=== PATIENT | female | born 1965 | race African-American/Black ===

== ENCOUNTER 2016-12-06 17:19 | Emergency (ER) | payer MEDICAID ==
[~2016-12-06] VITALS: Ht 160 cm; Wt 65.8 kg
[~2016-12-06 17:19] MED LIST: ATENOLOL50 MG ORAL; AZITHROMYCIN250 MG ORAL; BACTRIM DS TAB1 EAC1 ORAL; CLINDAMYCIN HC300 MG ORAL; CYCLOBENZAPRINE10 MG ORAL; DEBROX15 M1 LEFT EAR; HYDROCHLOROTHIA25 MG ORAL; IBUPROFEN600 MG ORAL; KEFLEX500 MG ORAL; LISINOPRIL10 MG ORAL; LISINOPRIL5 MG ORAL; PROMETHAZINE-D118 ML ORAL; TENORMIN50 MG ORAL
[2016-12-06 17:33] VITALS: BP 156/103
[2016-12-06] MEDS ORDERED: Lisinopril 10mg tab ORAL ONE (17:45)
[2016-12-06 18:10] VITALS: BP 170/124
[2016-12-06 18:20] VITALS: BP 168/113
[2016-12-06] MEDS ORDERED: LISINOPRIL10 MG ORAL (18:23)
[2016-12-06] MEDS ORDERED: ATENOLOL50 MG ORAL (18:23)
[2016-12-06] MEDS ORDERED: HYDROCHLOROTHIA25 MG ORAL (18:23)
[2016-12-06 18:30] VITALS: BP 168/113
--- NOTE | 2016-12-06 18:35 | Emergency Room Report ---
History of Present Illness General Chief Complaint: Medication Refill Source: Medical Record Present Illness HPI The patient is a 51-year-old female with a history of hypertension presenting for medication refill. Patient states that she has run out of all 3 of her hypertensive medications 2 days ago. The patient states that she has not been able to make an appointment with her primary care physician. The patient denies chest pain, shortness of breath, dizziness, blurred vision, flank pain, abdominal pain nausea, vomiting Allergies: Coded Allergies: NO KNOWN ALLERGIES (Unverified Allergy, Unknown, 08/31/15) Patient History Past Medical History: see triage record Pertinent Family History: none Last Menstrual Period: Hystecomy Now: No : 2 Para: 2 Reviewed Nursing Documentation: PMH: Agreed, PSxH: Agreed Nursing Documentation-PMH Past Medical History: No History, Except For Hx Hypertension: Yes Review of Systems All Other Systems: negative except mentioned in HPI Physical Exam Vital Signs Date Time Temp Pulse Resp B/P Pulse Ox O2 Delivery O2 Flow Rate FiO2 12/06/16 17:25 97.9 94 22 156/103 98 Room Air Sp02 EP Interpretation: reviewed, normal General Appearance: no apparent distress, alert, GCS 15, non-toxic Head: normocephalic, atraumatic Eyes: bilateral eye PERRL, bilateral eye normal inspection ENT: hearing grossly normal, normal pharynx, no angioedema, normal voice Neck: full range of motion, supple/symm/no masses Respiratory: chest non-tender, lungs clear, normal breath sounds, speaking full sentences Cardiovascular #1: regular rate, rhythm, no edema, no murmur Gastrointestinal: normal bowel sounds, non tender, soft, non-distended, no guarding, no rebound Rectal: deferred Genitourinary: normal inspection, no CVA tenderness Musculoskeletal: back normal, gait/station normal, normal range of motion, non- tender, calf tenderness Neurologic: alert, oriented x3, responsive, motor strength/tone normal, sensory intact, speech normal Psychiatric: judgement/insight normal, memory normal, mood/affect normal, no suicidal/homicidal ideation Skin: normal color, no rash, warm/dry, well hydrated Lymphatic: no adenopathy Medical Decision Making PA Attestation Dr. Milner is my supervising physician. Patient management was discussed with my supervising physician Diagnostic Impression: Primary Impression: Medication refill Additional Impression: Hypertension ER Course The patient is a 51-year-old female with a history of hypertension presenting for medication refill Differential diagnosis considered: Hypertension, hypotension, hypertensive urgency or emergency PE: The patient is hypertensive. No apparent distress. A&Ox3 PERRL. EOMI. Normal mentation. RRR. No MRG Lungs CTA bilat Abdomen: Normal appearance. Non distended. No ecchymosis. Normal BS. Non TTP. No McBurney point tenderness. No guarding. Skin is warm and dry, no rashes. The patient is given lisinopril in the emergency department and will be discharged home with all 3 medications refilled. The patient with followup with primary care physician for further care and refills of medication Last Vital Signs Date Time Temp Pulse Resp B/P Pulse Ox O2 Delivery O2 Flow Rate FiO2 12/06/16 18:20 97.9 75 22 168/113 98 Room Air Status: improved Disposition: HOME, SELF-CARE Condition: Improved Scripts Lisinopril* (LISINOPRIL*) 10 Mg Tablet 10 MG ORAL DAILY, #30 TAB Prov: QUITA MEYERS P.A. 12/06/16 Hydrochlorothiazide* (HYDROCHLOROTHIAZIDE*) 25 Mg Tablet 25 MG ORAL DAILY, #30 TAB Prov: TERYAMILAANQUITA P.A. 12/06/16 Atenolol* (TENORMIN*) 50 Mg Tablet 50 MG ORAL DAILY, #30 TAB Prov: TERYAMILAANQUITA P.A. 12/06/16 Referrals: LANEY BASHIR,REFERRING (PCP) Patient Instructions: Medicine Refill at the Emergency Department, Hypertension Additional Instructions: I discussed my findings with the patient. All questions and concerns have been answered. Treatment and medication compliance have been addressed. I advised the patient that they need to follow up with PMD in 3-5 days. Return to ED if symptoms worsen, new symptoms arise, or if needed for any reason. Patient verbalized understanding of discharge instructions. QUITA MEYERS Dec 06, 2016 18:35
== END 2016-12-06 18:31 | disposition home or self-care (01) ==
LOC: EMR 17:58
DX: Z76.0 Encounter for issue of repeat prescription (principal); I10 Essential (primary) hypertension
CPT/HCPCS: 99284

== ENCOUNTER 2017-01-22 15:57 | Emergency (ER) | payer MEDICAID ==
[~2017-01-22] VITALS: Ht 160 cm; Wt 63.5 kg
[2017-01-22 16:40] VITALS: BP 173/111
--- NOTE | 2017-01-22 16:52 | Emergency Room Report ---
History of Present Illness General Chief Complaint: Skin Rash/Abscess Source: Medical Record Present Illness HPI 31-year-old female presents to emergency department complaining of itchy rash on the posterior neck and right shoulder since yesterday. Patient reports multiple insect bites that are itching and mildly erythematous. Patient denies nausea vomiting fevers or chills. Patient denies discharge or staining around the lesions. She denies rash elsewhere on her body. She denies recent travel or ill contacts. She also is requesting refill of her blood pressure medications atenolol, hydrochlorothiazide, lisinopril. Patient states that she has been out of her medications and did not take any today . Denies CP, Palpitations, LOC, AMS, dizziness, Changes in Vision, Sensation, paresthesias, or a sudden severe headache. Allergies: Coded Allergies: NO KNOWN ALLERGIES (Unverified Allergy, Unknown, 08/31/15) Patient History Past Medical History: see triage record Past Surgical History: none Pertinent Family History: none Now: No Immunizations: UTD Reviewed Nursing Documentation: PMH: Agreed, PSxH: Agreed Nursing Documentation-PMH Hx Hypertension: Yes Review of Systems All Other Systems: negative except mentioned in HPI Physical Exam Vital Signs Date Time Temp Pulse Resp B/P Pulse Ox O2 Delivery O2 Flow Rate FiO2 01/22/17 16:29 98.4 88 16 173/111 97 Room Air Sp02 EP Interpretation: reviewed, abnormal - elevated BP 173/111 General Appearance: no apparent distress, alert, GCS 15, non-toxic Head: normocephalic, atraumatic Eyes: bilateral eye PERRL, bilateral eye normal inspection ENT: hearing grossly normal, normal pharynx, no angioedema, normal voice Neck: full range of motion, supple/symm/no masses Respiratory: chest non-tender, lungs clear, normal breath sounds, speaking full sentences Cardiovascular #1: regular rate, rhythm, no edema Rectal: deferred Genitourinary: normal inspection, no CVA tenderness Musculoskeletal: back normal, gait/station normal, normal range of motion, non- tender, no calf tenderness Neurologic: alert, oriented x3, responsive, motor strength/tone normal, sensory intact, speech normal Psychiatric: judgement/insight normal, memory normal, mood/affect normal, no suicidal/homicidal ideation Skin: normal color, warm/dry, well hydrated, rash - multiple insect bites with surrounding non-blanching erythema suspicious for mild cellulitis. Lymphatic: no adenopathy Medical Decision Making PA Attestation Dr. Garces is my supervising Physician whom patient management has been discussed with. Diagnostic Impression: Primary Impression: Rash and other nonspecific skin eruption Additional Impressions: Medication refill Hypertension Qualified Codes: I10 - Essential (primary) hypertension ER Course 31-year-old female presents to emergency department complaining of itchy rash on the posterior neck and right shoulder since yesterday. Patient reports multiple insect bites that are itching and mildly erythematous. Patient denies nausea vomiting fevers or chills. Patient denies discharge or staining around the lesions. She denies rash elsewhere on her body. She denies recent travel or ill contacts. She also is requesting refill of her blood pressure medications atenolol, hydrochlorothiazide, lisinopril. Patient states that she has been out of her medications and did not take any today Ddx considered but are not limited to cellulitis, scabies, shingles, varicella, dermatitis, urticaria, eczema, tinea, Medication refill, HTN urgency, elevated BP. Vital signs: pt. is afebrile, elevated BP at 173/111 , non-tachycardic, non- toxic NAD. H&PE are most consistent with multiple insect bites with surrounding non- blanching erythema suspicious for mild cellulitis. ORDERS: none required at this time, the diagnosis is clinical ED INTERVENTIONS: -HCTZ PO -Atenolol PO DISCHARGE: At this time pt. is stable for d/c to home. Will provide printed patient care instructions, and any necessary prescriptions. Care plan and follow up instructions have been discussed with the patient prior to discharge. Last Vital Signs Date Time Temp Pulse Resp B/P Pulse Ox O2 Delivery O2 Flow Rate FiO2 01/22/17 16:40 16 173/111 97 Room Air 01/22/17 16:29 98.4 88 Disposition: HOME, SELF-CARE Condition: Stable Patient Instructions: Medicine Refill at the Emergency Department, Rash Additional Instructions: Take medications as directed. Follow up with PCP in 3-5 days Return sooner to ED if new symptoms occur, or current symptoms become worse. - Please note that this Emergency Department Report was dictated using [employer] software, occasionally this can lead to erroneous entry secondary to interpretation by the dictation equipment. Sayda Ibarra Jan 22, 2017 16:52
[2017-01-22] MEDS ORDERED: HYDROCHLOROTHIA25 MG ORAL (16:54)
[2017-01-22] MEDS ORDERED: CEPHALEXIN500 MG ORAL (16:54)
[2017-01-22] MEDS ORDERED: BENADRYL25 MG ORAL (16:54)
[2017-01-22] MEDS ORDERED: HM DOUBLE ANT28.4 G1 TP (16:54)
[2017-01-22] MEDS ORDERED: ATENOLOL50 MG ORAL (16:54)
[2017-01-22] MEDS ORDERED: LISINOPRIL5 MG ORAL (16:54)
[2017-01-22 17:00] VITALS: BP 173/111
== END 2017-01-22 17:30 | disposition home or self-care (01) ==
LOC: EMR 17:13
DX: R21 Rash and other nonspecific skin eruption (principal); Z76.0 Encounter for issue of repeat prescription; I10 Essential (primary) hypertension
CPT/HCPCS: 99284

== ENCOUNTER 2017-03-20 19:12 | Emergency (ER) | payer MEDICAID ==
[~2017-03-20] VITALS: Ht 160 cm; Wt 63.5 kg
[~2017-03-20 19:12] MED LIST changes: +BENADRYL25 MG ORAL; +CEPHALEXIN500 MG ORAL; +HM DOUBLE ANT28.4 G1 TP
[2017-03-20] MEDS ORDERED: ATENOLOL50 MG ORAL (19:32)
[2017-03-20] MEDS ORDERED: LISINOPRIL10 MG ORAL (19:32)
[2017-03-20] MEDS ORDERED: HYDROCHLOROTHIA25 MG ORAL (19:32)
[2017-03-20 19:42] VITALS: BP 145/107
[2017-03-20] MEDS ORDERED: TdaP Vaccine 0.5ml Syr IM ONE (19:45)
--- NOTE | 2017-03-20 19:52 | Emergency Room Report ---
History of Present Illness General Chief Complaint: Hypertension Source: Patient Present Illness HPI Patient reports that she feels her blood pressure has been high She reports that she usually gets a head pressure And feels the headache coming on with blood pressure Denies any neck pain or photophobia denies any chest pain as any back or flank pain Denies any dysuria frequency Denies any fall or trauma Patient has not taken her blood pressure today Also reports that one of her blood pressure vacation was not refilled last time she was in the ER has not taken her lisinopril over the last month Allergies: Coded Allergies: NO KNOWN ALLERGIES (Unverified Allergy, Unknown, 08/31/15) Patient History Past Medical History: see triage record Pertinent Family History: none Last Menstrual Period: SURGICAL MENOPAUSE Reviewed Nursing Documentation: PMH: Agreed, PSxH: Agreed Nursing Documentation-PMH Hx Hypertension: Yes Review of Systems All Other Systems: negative except mentioned in HPI Physical Exam Vital Signs Date Time Temp Pulse Resp B/P Pulse Ox O2 Delivery O2 Flow Rate FiO2 03/20/17 19:32 97.9 67 16 145/107 98 Room Air Sp02 EP Interpretation: reviewed, normal General Appearance: well appearing, no apparent distress Head: normocephalic, atraumatic Eyes: bilateral eye EOMI, bilateral eye PERRL ENT: hearing grossly normal, normal pharynx, TMs + canals normal, uvula midline Neck: full range of motion, supple, no meningismus, no bony tend Respiratory: lungs clear, normal breath sounds, no rhonchi, no respiratory distress, no retraction, no accessory muscle use Cardiovascular #1: normal peripheral pulses, regular rate, rhythm, no edema, no gallop, no JVD, no murmur Gastrointestinal: normal bowel sounds, non tender, soft, no mass, no organomegaly, non-distended, no guarding, no hernia, no pulsatile mass, no rebound Genitourinary: no CVA tenderness Musculoskeletal: normal inspection Neurologic: oriented x3, responsive, staff submarine warfare officer III-XII nml as tested, motor strength/ tone normal, sensory intact Psychiatric: mood/affect normal Skin: warm/dry, palpation normal, other - Small abrasion lateral part of the right leg Lymphatic: normal inspection, no adenopathy Medical Decision Making Diagnostic Impression: Primary Impression: Hypertension Additional Impression: Medication refill ER Course Patient also requesting tetanus shot reports that she had a scratch on her right leg and has not received a tetanus shot as of yet At this time essentially asymptomatic, Patient's blood pressure at triage is 145 systolic At this time patient was prescribed and refilled her medications I did have a discussion regarding the need for close outpatient followup Refills to the ER are not the appropriate avenue patient voices understanding Last Vital Signs Date Time Temp Pulse Resp B/P Pulse Ox O2 Delivery O2 Flow Rate FiO2 03/20/17 19:32 97.9 67 16 145/107 98 Room Air Status: improved Disposition: HOME, SELF-CARE Condition: Improved Scripts Atenolol* (TENORMIN*) 50 Mg Tablet 50 MG ORAL DAILY, #30 TAB Prov: DIANA LEAL D.O. 03/20/17 Hydrochlorothiazide* (HYDROCHLOROTHIAZIDE*) 25 Mg Tablet 25 MG ORAL DAILY, #30 TAB Prov: DIANA LEAL D.O. 03/20/17 Lisinopril* (LISINOPRIL*) 10 Mg Tablet 10 MG ORAL DAILY, #30 TAB Prov: DIANA LEAL D.O. 03/20/17 Patient Instructions: Hypertension, [id number] Additional Instructions: Patient is provided with the discharge instructions notified to follow up with primary doctor in the next 2-3 days otherwise return to the er with any worsening symptoms. Please note that this report is being documented using [employer] technology. This can lead to erroneous entry secondary to incorrect interpretation by the dictating instrument. DIANA LEAL D.O. March 20, 2017 19:52
[2017-03-20 20:01] VITALS: BP 145/107
== END 2017-03-20 20:01 | disposition home or self-care (01) ==
LOC: EMR 19:30
DX: I10 Essential (primary) hypertension (principal); Z76.0 Encounter for issue of repeat prescription; Z23 Encounter for immunization; S70.311A Abrasion, right thigh, initial encounter; X58.XXXA Exposure to other specified factors, initial encounter; Y92.89 Other specified places as the place of occurrence of the external cause
CPT/HCPCS: 90471; 90715; 96372; 99284

== ENCOUNTER 2017-05-19 18:56 | Emergency (ER) | payer MEDICAID ==
[~2017-05-19] VITALS: Ht 160 cm; Wt 63.5 kg
[2017-05-19 19:13] VITALS: BP 144/98
[2017-05-19] MEDS ORDERED: ATENOLOL50 MG ORAL (19:31)
[2017-05-19] MEDS ORDERED: LISINOPRIL10 MG ORAL (19:31)
[2017-05-19] MEDS ORDERED: HYDROCHLOROTHIA25 MG ORAL (19:31)
[2017-05-19] MEDS ORDERED: IBUPROFEN600 MG ORAL (19:32)
[2017-05-19] MEDS ORDERED: TESSALON PERLE100 MG ORAL (19:32)
[2017-05-19 19:37] VITALS: BP 150/79
[2017-05-19 19:38] VITALS: BP 144/98
--- NOTE | 2017-05-19 22:17 | Emergency Room Report ---
History of Present Illness General Chief Complaint: Upper Respiratory Illness Source: Patient Present Illness HPI The patient is a 51-year-old female with a history of hypertension presenting for 2 weeks of hoarse voice and cough. She also would like a medication refill for antihypertensive medications which ran out today. The patient describes pain as an 8/10 dull ache to the back of the throat and does not radiate. Symptoms worsen with talking. She denies fever or chills. She denies any other symptoms including nausea, vomiting, headache, dizziness, chest pain, shortness of breath Allergies: Coded Allergies: NO KNOWN ALLERGIES (Unverified Allergy, Unknown, 08/31/15) Patient History Past Medical History: see triage record Pertinent Family History: none Now: No Reviewed Nursing Documentation: PMH: Agreed, PSxH: Agreed Nursing Documentation-PMH Hx Hypertension: Yes Review of Systems All Other Systems: negative except mentioned in HPI Physical Exam Vital Signs Date Time Temp Pulse Resp B/P Pulse Ox O2 Delivery O2 Flow Rate FiO2 05/19/17 19:00 97.9 80 15 144/112 96 Room Air Sp02 EP Interpretation: reviewed, normal General Appearance: no apparent distress, alert, GCS 15, non-toxic Head: normocephalic, atraumatic Eyes: bilateral eye PERRL, bilateral eye normal inspection ENT: hearing grossly normal, normal pharynx, no angioedema, normal voice, uvula midline, nasal congestion Neck: full range of motion, supple/symm/no masses Respiratory: chest non-tender, lungs clear, normal breath sounds, speaking full sentences Genitourinary: normal inspection, no CVA tenderness Musculoskeletal: back normal, gait/station normal, normal range of motion, non- tender, calf tenderness Neurologic: alert, oriented x3, responsive, motor strength/tone normal, sensory intact, speech normal Psychiatric: judgement/insight normal, memory normal, mood/affect normal, no suicidal/homicidal ideation Skin: normal color, no rash, warm/dry, well hydrated Medical Decision Making PA Attestation Dr. Milner is my supervising physician. Patient management was discussed with my supervising physician Diagnostic Impression: Primary Impression: Laryngitis Additional Impression: Hypertension Qualified Codes: I10 - Essential (primary) hypertension ER Course The patient is a 51-year-old female presenting for laryngitis and medication refill Differential diagnosis include but not limited to pharyngitis, laryngitis, sinusitis, AOM, bronchitis, PNA PE: No apparent distress. No TTP over maxillary or frontal sinuses. Lungs CTA bilat. No wheezing. No accessory muscle use. Heart: RRR, no abnormal heart sounds Ears: external auditory canal clear. Non erythematous. Bilat TM intact. Cone of light present bilat. No bulging of TM. No serous fluid seen. + nasal D/C no anterior cervical lymphad No tonsillar exudate. Uvula midline.Oropharynx non erythematous The patient is discharged home with a prescription for cough medication and Motrin. She is also given refills on antihypertensive medications. She is informed she needs to followup with primary doctor for long-term care. ER precautions given Last Vital Signs Date Time Temp Pulse Resp B/P Pulse Ox O2 Delivery O2 Flow Rate FiO2 05/19/17 19:38 97.9 75 15 144/98 96 Room Air Status: improved Disposition: HOME, SELF-CARE Condition: Improved Scripts Ibuprofen* (MOTRIN*) 600 Mg Tablet 600 MG ORAL Q8H Y for For Pain, #30 TAB 0 Refills Prov: TERZIAN,QUITA P.A. 05/19/17 Benzonatate* (TESSALON PERLE*) 100 Mg Capsule 100 MG ORAL THREE TIMES A DAY, #30 PERLE Prov: TERZIAN,QUITA P.A. 05/19/17 Lisinopril* (LISINOPRIL*) 10 Mg Tablet 10 MG ORAL DAILY, #30 TAB Prov: TERZIAN,QUITA P.A. 05/19/17 Hydrochlorothiazide* (HYDROCHLOROTHIAZIDE*) 25 Mg Tablet 25 MG ORAL DAILY, #30 TAB Prov: TERZIAN,QUITA P.A. 05/19/17 Atenolol* (TENORMIN*) 50 Mg Tablet 50 MG ORAL DAILY, #30 TAB Prov: TERZIAN,QUITA P.A. 05/19/17 Patient Instructions: Laryngitis, Hypertension Additional Instructions: I discussed my findings with the patient. All questions and concerns have been answered. Treatment and medication compliance have been addressed. I advised the patient that they need to follow up with PMD in 3-5 days. Return to ED if pain remains or worsens, cough worsens or remains, you notice blood in your sputum, you notice wheezing, you experience a fever, or if needed for any reason. Patient verbalized understanding of discharge instructions. QUITA MEYERS May 19, 2017 22:16
== END 2017-05-19 19:40 | disposition home or self-care (01) ==
LOC: EMR 19:25
DX: J04.0 Acute laryngitis (principal); I10 Essential (primary) hypertension; Z76.0 Encounter for issue of repeat prescription
CPT/HCPCS: 99284

== ENCOUNTER 2017-08-21 14:54 | Emergency (ER) | payer MEDICAID ==
[~2017-08-21] VITALS: Ht 160 cm; Wt 65.8 kg
[~2017-08-21 14:54] MED LIST changes: +TESSALON PERLE100 MG ORAL
[2017-08-21 15:05] VITALS: BP 131/87
[2017-08-21] MEDS ORDERED: HYDROCHLOROTHIA25 MG ORAL (15:27)
[2017-08-21] MEDS ORDERED: IBUPROFEN600 MG ORAL (15:27)
[2017-08-21] MEDS ORDERED: ATENOLOL50 MG ORAL (15:27)
[2017-08-21] MEDS ORDERED: LISINOPRIL10 MG ORAL (15:27)
--- NOTE | 2017-08-21 22:14 | Emergency Room Report ---
History of Present Illness General Chief Complaint: Headache Source: Patient Present Illness HPI Patient is a 52-year-old female presenting for headache and medication refill. She states that she has a history of hypertension and ran out of medications today. This is her primary reason for the visit. She states that she developed a headache today and took Motrin which helped significantly. Pain is now 5/10 dull ache. She denies any provoking or relieving factors. She denies any other symptoms including nausea, vomiting, fever, chills, dizziness, blurred vision, headache Allergies: Coded Allergies: NO KNOWN ALLERGIES (Unverified Allergy, Unknown, 08/31/15) Patient History Past Medical History: see triage record Pertinent Family History: none Reviewed Nursing Documentation: PMH: Agreed, PSxH: Agreed Nursing Documentation-PMH Past Medical History: No History, Except For Hx Hypertension: Yes Review of Systems All Other Systems: negative except mentioned in HPI Physical Exam Vital Signs Date Time Temp Pulse Resp B/P (MAP) Pulse Ox O2 Delivery O2 Flow Rate FiO2 08/21/17 15:05 98.1 79 14 131/87 100 Room Air Sp02 EP Interpretation: reviewed, normal General Appearance: no apparent distress, alert, GCS 15, non-toxic Head: normocephalic, atraumatic Eyes: bilateral eye normal inspection, bilateral eye PERRL ENT: hearing grossly normal, normal pharynx, no angioedema, normal voice Neck: full range of motion, supple/symm/no masses Respiratory: chest non-tender, lungs clear, normal breath sounds, speaking full sentences Cardiovascular #1: regular rate, rhythm, no edema Musculoskeletal: back normal, gait/station normal, normal range of motion, non- tender Neurologic: alert, oriented x3, responsive, motor strength/tone normal, sensory intact, speech normal Psychiatric: judgement/insight normal, memory normal, mood/affect normal, no suicidal/homicidal ideation Skin: normal color, no rash, warm/dry, well hydrated Lymphatic: no adenopathy Medical Decision Making PA Attestation Dr. Gaines is my supervising physician. Patient management was discussed with my supervising physician Diagnostic Impression: Primary Impression: Headache Qualified Codes: R51 - Headache Additional Impression: Hypertension Qualified Codes: I10 - Essential (primary) hypertension ER Course Patient is a 52-year-old female presenting for headache and medication refill. Differential diagnoses include but not limited to Migraine, tension headache, AVM, HTN, among others PE: vitals WNL. NAD HEENT unremarkable. Neck is soft and supple. FulL AROM The patient is given Tylenol for pain and feels significantly better. She is given refill of her medications and needs to followup with her primary doctor ER precautions given Last Vital Signs Date Time Temp Pulse Resp B/P (MAP) Pulse Ox O2 Delivery O2 Flow Rate FiO2 08/21/17 15:34 98.1 79 14 131/87 100 Room Air Status: improved Disposition: HOME, SELF-CARE Condition: Improved Scripts Ibuprofen* (MOTRIN*) 600 Mg Tablet 600 MG ORAL Q8H Y for For Pain, #30 TAB 0 Refills Prov: QUITA MEYERS.A. 08/21/17 Lisinopril* (LISINOPRIL*) 10 Mg Tablet 10 MG ORAL DAILY, #30 TAB Prov: QUITA MEEYRS P.A. 08/21/17 Hydrochlorothiazide* (HYDROCHLOROTHIAZIDE*) 25 Mg Tablet 25 MG ORAL DAILY, #30 TAB Prov: TERYAMILAANQUITA P.A. 08/21/17 Atenolol* (TENORMIN*) 50 Mg Tablet 50 MG ORAL DAILY, #30 TAB Prov: TERYAMILAANQUITA P.A. 08/21/17 Referrals: LANEY BASHIR,REFERRING (PCP) Patient Instructions: General Headache Without Cause, Hypertension Additional Instructions: I discussed my findings with the patient. All questions and concerns have been answered. Treatment and medication compliance have been addressed. I advised the patient that they need to follow up with PMD in 3-5 days. Return to ED if symptoms worsen, new symptoms arise, or if needed for any reason. Patient verbalized understanding of discharge instructions. QUITA MEYERS Aug 21, 2017 22:14
== END 2017-08-21 15:34 | disposition home or self-care (01) ==
LOC: EMR 15:30
DX: R51 Headache (principal); I10 Essential (primary) hypertension
CPT/HCPCS: 99284

== ENCOUNTER 2017-09-22 14:47 | Emergency (ER) | payer MEDICAID ==
[~2017-09-22] VITALS: Ht 160 cm; Wt 63.5 kg
[2017-09-22] MEDS ORDERED: Excedrin Migraine tab ORAL ONE (15:45)
[2017-09-22 16:18] LABS: APPEARANCE,URINE CLEAR; BILIRUBIN, URINE NEGATIVE (NEGATIVE); COLOR,URINE PALE YELLOW; GLUCOSE, URINE (UA) NEGATIVE (NEGATIVE); KETONES,URINE NEGATIVE (NEGATIVE); LEUKOCYTE ESTERASE ,URINE 3+ (NEGATIVE); NITRITE,URINE NEGATIVE (NEGATIVE); PH,URINE 5 (4.5-8.0); PROTEIN,URINE NEGATIVE (NEGATIVE); UROBILINOGEN,URINE NORMAL MG/DL (0.0-1.0)
--- NOTE | 2017-09-22 16:50 | Emergency Room Report ---
History of Present Illness General Chief Complaint: Headache Source: Patient Present Illness HPI 52 YO Female presents to the emergency department complaining of 8/10 in severity slow onset headache intermittent times one week with some nausea denies vomiting. Patient states that she has had headaches in the past which are similar in character. Patient denies visual changes, photophobia, floaters , flashing lights. Patient denies neck pain or stiffness she denies sudden onset denies fevers or chills. Patient has a history of high blood pressure and she reports that she has always been taking her medication the past week because she needed a refill. Patient states that she does have her medication now. Reports urinary frequency denies dysuria, hematuria. Patient reports some thickened white vaginal discharge and itching in the groin area she believes she may have a yeast infection. Denies recent antibiotic use. Or recent unprotected intercourse. Denies CP, Palpitations, LOC, AMS, dizziness, Changes in Vision, Sensation, paresthesias, or a sudden severe headache. Allergies: Coded Allergies: NO KNOWN ALLERGIES (Unverified Allergy, Unknown, 08/31/15) Patient History Past Medical History: see triage record Past Surgical History: none Pertinent Family History: none Last Menstrual Period: "Partial hyst" Now: No Reviewed Nursing Documentation: PMH: Agreed, PSxH: Agreed Nursing Documentation-PMH Hx Hypertension: Yes Review of Systems All Other Systems: negative except mentioned in HPI Physical Exam Vital Signs Date Time Temp Pulse Resp B/P (MAP) Pulse Ox O2 Delivery O2 Flow Rate FiO2 09/22/17 15:02 98.2 89 16 155/104 100 Room Air Sp02 EP Interpretation: reviewed, normal General Appearance: no apparent distress, alert, GCS 15, non-toxic Head: normocephalic, atraumatic Eyes: bilateral eye normal inspection, bilateral eye PERRL ENT: hearing grossly normal, normal pharynx, no angioedema, normal voice, TMs + canals normal Neck: full range of motion, no meningismus, no bony tend, supple/symm/no masses Respiratory: lungs clear, normal breath sounds, speaking full sentences Cardiovascular #1: regular rate, rhythm, normal capillary refill Gastrointestinal: non tender, soft Rectal: deferred Genitourinary: normal inspection, no CVA tenderness Musculoskeletal: back normal, gait/station normal, normal range of motion, non- tender Neurologic: alert, oriented x3, responsive, motor strength/tone normal, sensory intact, speech normal, no pronator, other - equal communications engineering technician strength. Skin: normal color, no rash, warm/dry, well hydrated Lymphatic: no adenopathy Medical Decision Making PA Attestation Dr. castro is my supervising Physician whom patient management has been discussed with. Diagnostic Impression: Primary Impression: Headache Qualified Codes: R51 - Headache ER Course 52 YO Female presents to the emergency department complaining of 8/10 in severity slow onset headache intermittent times one week with some nausea denies vomiting. Patient states that she has had headaches in the past which are similar in character. Patient denies visual changes, photophobia, floaters , flashing lights. Patient denies neck pain or stiffness she denies sudden onset denies fevers or chills. Patient has a history of high blood pressure and she reports that she has always been taking her medication the past week because she needed a refill. Patient states that she does have her medication now. Reports urinary frequency denies dysuria, hematuria. Patient reports some thickened white vaginal discharge and itching in the groin area she believes she may have a yeast infection. Denies recent antibiotic use. Or recent unprotected intercourse. Denies CP, Palpitations, LOC, AMS, dizziness, Changes in Vision, Sensation, paresthesias, or a sudden severe headache. Ddx considered but are not limited to migraine, SAH, Psedudo motor Cerebri, Mass lesion, Cluster SALAZAR, Tension SALAZAR, Post lumbar puncture SALAZAR, UTI, yeast infection. Vital signs: are WNL, pt. is afebrile H&PE are most consistent with SALAZAR, no neurological clinical findings, no evidence to suspect acute infection. ORDERS: - UA: Unremarkable ED INTERVENTIONS: - Reglan PO -Excedrin PO DISCHARGE: At this time pt. is stable for d/c to home. Will provide printed patient care instructions, and any necessary prescriptions. Care plan and follow up instructions have been discussed with the patient prior to discharge. Labs Test 09/22/17 15:39 Urine Color Pale yellow Urine Appearance Clear Urine pH 5 (4.5-8.0) Urine Specific [place] 1.015 (1.005-1.035) Urine Protein Negative (NEGATIVE) Urine Glucose (UA) Negative (NEGATIVE) Urine Ketones Negative (NEGATIVE) Urine Occult Blood Negative (NEGATIVE) Urine Nitrite Negative (NEGATIVE) Urine Bilirubin Negative (NEGATIVE) Urine Urobilinogen Normal MG/DL (0.0-1.0) Urine Leukocyte Esterase 3+ (NEGATIVE) Urine RBC 0-2 /HPF (0 - 2) Urine WBC 2-4 /HPF (0 - 2) Urine Squamous Epithelial Cells Few /LPF (NONE/OCC) Urine Bacteria Few /HPF (NONE) Last Vital Signs Date Time Temp Pulse Resp B/P (MAP) Pulse Ox O2 Delivery O2 Flow Rate FiO2 09/22/17 15:02 98.2 89 16 155/104 100 Room Air Disposition: HOME, SELF-CARE Condition: Stable Scripts Fluconazole (FLUCONAZOLE) 100 Mg Tablet 100 MG ORAL DAILY for 2 Days, #2 TAB 0 Refills Prov: Sayda Ibarra 09/22/17 Aspirin/Acetaminophen/Caffeine (EXCEDRIN MIGRAINE GELTAB) 1 Each Tablet 1 EACH PO Q6HR, #20 TAB Prov: Sayda Ibarra 09/22/17 Metoclopramide Hcl* (REGLAN*) 10 Mg Tablet 10 MG ORAL THREE TIMES A DAY Y for For Headache, #7 TAB Prov: Syada Ibarra 09/22/17 Referrals: [facility],REFERRING (PCP) Departure Forms: Return to Work Return to Work Date: Sep 24, 2017 Work Restrictions: None Return to Full Activity: Sep 24, 2017 Patient Instructions: General Headache Without Cause Additional Instructions: Take medications as directed. Follow up with a Primary Care Provider in 3-5 days may require neurology evaluation, even if your symptoms have resolved. --Please review list of primary care clinics, if you do not already have a primary care provider Return sooner to ED if new symptoms occur, or current symptoms become worse. - Please note that this Emergency Department Report was dictated using [employer] stewardess technology software, occasionally this can lead to erroneous entry secondary to interpretation by the dictation equipment. Sayda Ibarra Sep 22, 2017 16:50
[2017-09-22] MEDS ORDERED: EXCEDRIN MIGRA1 EACH PO (16:53)
[2017-09-22] MEDS ORDERED: REGLAN10 MG ORAL (16:53)
[2017-09-22 17:02] VITALS: BP 150/99
[2017-09-22] MEDS ORDERED: FLUCONAZOLE100 MG ORAL (17:02)
== END 2017-09-22 17:02 | disposition home or self-care (01) ==
LOC: EMR 15:40
DX: R51 Headache (principal); I10 Essential (primary) hypertension
CPT/HCPCS: 81003; 99284

== ENCOUNTER 2017-11-06 18:13 | Emergency (ER) | payer MEDICAID ==
[~2017-11-06] VITALS: Ht 160 cm; Wt 65.8 kg
[~2017-11-06 18:13] MED LIST changes: +EXCEDRIN MIGRA1 EACH PO; +FLUCONAZOLE100 MG ORAL; +REGLAN10 MG ORAL
[2017-11-06] MEDS ORDERED: ATENOLOL50 MG ORAL (18:47)
[2017-11-06] MEDS ORDERED: LISINOPRIL-HCT1 EACH ORAL (18:47)
--- NOTE | 2017-11-06 18:47 | Emergency Room Report ---
History of Present Illness General Chief Complaint: Medication Refill Present Illness HPI 52 -year-old female complains of medication refill. Patient states that she takes atenolol 50 mg, lisinopril 10 mg, and hydrochlorothiazide 12.5 mg for hypertension. She takes medication with good compliance, without adverse reactions, and with good control of her symptoms. They say she does not have a primary care provider. Patient is requesting refill for today. Last taken her medication was yesterday.Denies any current n/v/f/c/d, abd pain, back pain, neck pain, photophobia, phonophobia, CP, SOB or headache. Allergies: Coded Allergies: NO KNOWN ALLERGIES (Unverified Allergy, Unknown, 08/31/15) Patient History Past Medical History: see triage record Reviewed Nursing Documentation: PMH: Agreed, PSxH: Agreed Nursing Documentation-PMH Hx Hypertension: Yes Review of Systems All Other Systems: negative except mentioned in HPI Physical Exam Vital Signs Date Time Temp Pulse Resp B/P (MAP) Pulse Ox O2 Delivery O2 Flow Rate FiO2 11/06/17 18:25 97.7 102 20 142/88 99 Room Air Sp02 EP Interpretation: reviewed, normal General Appearance: no apparent distress, alert, GCS 15, non-toxic Head: normocephalic, atraumatic Eyes: bilateral eye normal inspection, bilateral eye PERRL ENT: no angioedema, normal voice Neck: full range of motion, supple/symm/no masses Respiratory: chest non-tender, lungs clear, normal breath sounds, speaking full sentences Cardiovascular #1: regular rate, rhythm, no edema, systolic murmur Musculoskeletal: digits/nails normal, gait/station normal Neurologic: alert, oriented x3, responsive, motor strength/tone normal, sensory intact, speech normal Psychiatric: judgement/insight normal, memory normal, mood/affect normal, no suicidal/homicidal ideation Skin: normal color, no rash, warm/dry, well hydrated Medical Decision Making PA Attestation Dr. Gaines my supervising physician with whom patient management has been discussed with. Diagnostic Impression: Primary Impression: Encounter for medication refill Additional Impression: Hypertension Qualified Codes: I10 - Essential (primary) hypertension ER Course Pt. presents to the ED c/o medication refill Ddx considered but are not limited to HTN, CVA, [place] Vital signs: are WNL, pt. is afebrile H&PE are most consistent with med refill for HTN ORDERS: none required at this time, the diagnosis is clinical ED INTERVENTIONS: none required at this time. DISCHARGE: At this time pt. is stable for d/c to home. Will provide printed patient care instructions, and any necessary prescriptions. Care plan and follow up instructions have been discussed with the patient prior to discharge. Last Vital Signs Date Time Temp Pulse Resp B/P (MAP) Pulse Ox O2 Delivery O2 Flow Rate FiO2 11/06/17 18:25 97.7 102 20 142/88 99 Room Air Disposition: HOME, SELF-CARE Condition: Stable Scripts Lisinopril/Hydrochlorothiazide 10-12.5 Mg Tab (LISINOPRIL-HCTZ 10-12.5 MG TAB) 1 Each Tablet 1 TAB ORAL DAILY for 30 Days, #30 TAB Prov: MATT HELMS 11/06/17 Atenolol* (TENORMIN*) 50 Mg Tablet 50 MG ORAL DAILY, #30 TAB Prov: MATT HELMS 11/06/17 Patient Instructions: Medicine Refill at the Emergency Department Additional Instructions: Patient advised to follow up with her PCP for future refills. Take as directed. Return if you have any adverse reactions or any chest pain, shortness of breath or swelling of the face / lips. MATT HELMS Nov 06, 2017 18:47
[2017-11-06 18:55] VITALS: BP 144/79
== END 2017-11-06 19:00 | disposition home or self-care (01) ==
LOC: EMR 18:47
DX: Z76.0 Encounter for issue of repeat prescription (principal); I10 Essential (primary) hypertension
CPT/HCPCS: 99282

== ENCOUNTER 2018-02-09 16:01 | Emergency (ER) | payer MEDICAID ==
[~2018-02-09] VITALS: Ht 160 cm; Wt 63.5 kg
[~2018-02-09 16:01] MED LIST changes: +LISINOPRIL-HCT1 EACH ORAL
[2018-02-09 16:24] VITALS: BP 161/106
--- NOTE | 2018-02-09 16:40 | Emergency Room Report ---
History of Present Illness General Chief Complaint: Medication Refill Source: Patient Present Illness HPI 52 yo female patient presents to ER requesting refill of HTN medication. Patient reports she does not know the names of medication. States previously seen in ER for refills. Reports she does not have a primary care provider. Denies fever, chest pain, SOB, abdominal pain, dysuria. Denies SALAZAR, calf pain, neck pain, vision loss or changes. Denies syncope, dizziness, or fainting. Allergies: Coded Allergies: NO KNOWN ALLERGIES (Unverified Allergy, Unknown, 08/31/15) Patient History Past Medical History: see triage record Last Menstrual Period: na Now: No Reviewed Nursing Documentation: PMH: Agreed; PSxH: Agreed Nursing Documentation-PMH Past Medical History: No History, Except For Hx Hypertension: Yes Review of Systems All Other Systems: negative except mentioned in HPI Physical Exam Vital Signs Date Time Temp Pulse Resp B/P (MAP) Pulse Ox O2 Delivery O2 Flow Rate FiO2 02/09/18 16:14 98.1 86 18 161/106 98 Room Air 98.1 Sp02 EP Interpretation: reviewed, normal General Appearance: well appearing, no apparent distress, alert, GCS 15, non- toxic Head: normocephalic, atraumatic Eyes: bilateral eye normal inspection, bilateral eye PERRL ENT: hearing grossly normal, normal pharynx, no angioedema, normal voice, uvula midline, moist mucus membranes Neck: full range of motion Respiratory: lungs clear, normal breath sounds, no rhonchi, no respiratory distress, no accessory muscle use, no wheezing, speaking full sentences Cardiovascular #1: regular rate, rhythm, no edema Gastrointestinal: non tender, soft, no mass, non-distended, no guarding, no rebound Musculoskeletal: back normal, digits/nails normal, gait/station normal, normal range of motion, non-tender Neurologic: alert, oriented x3, responsive, motor strength/tone normal, sensory intact Psychiatric: mood/affect normal Skin: no rash Lymphatic: no adenopathy Medical Decision Making PA Attestation Dr. Trinh is my supervising Physician whom patient management has been discussed with. Diagnostic Impression: Primary Impression: Medication refill Additional Impression: History of hypertension ER Course Pt. presents to the ED requesting medication refill. Multiple differentials considered. Vital signs: are WNL, pt. is afebrile. Patient blood pressure elevated to 161/ 106. States has not taken medication today. Will provide rx for medication. Patient denies chest pain, SOB, abdominal pain, vision changes. Does not require labs and inpatient treatment at this time. ORDERS: none required at this time, the diagnosis is clinical ER COURSE: Look in chart to see patient medications previously taking, patient confirms these are her medications. Refill prescription for 1 month. Contact insurances, request primary care provider. Followup with primary care provider for management of HTN. Patient reports agreement. Cannot refill medications in ER continuously, needs proper management and treatment from primary care provider. DISCHARGE: Rx provided for Atenolol Rx provided for Lisinopril Rx provided for HCTZ At this time pt is stable for d/c to home. Patient is resting comfortably, in no acute distress, nontoxic appearing, talking without difficulty. Patient to take medications as instructed Will provide with patient care instructions and any necessary prescriptions. Care plan and follow-up instructions provided. Patient instructed to follow-up with primary care provider in 3 - 5 days. Patient questions asked and answered. Patient reports understanding and agreement to treatment plan. ER precautions given. Patient instructed to return to ER immediately for any new or worsening of symptoms including but not limited to increasing SOB, persistent fever. Last Vital Signs Date Time Temp Pulse Resp B/P (MAP) Pulse Ox O2 Delivery O2 Flow Rate FiO2 02/09/18 16:14 98.1 86 18 161/106 98 Room Air 98.1 Disposition: HOME, SELF-CARE Condition: Stable Scripts Lisinopril* (PRINIVIL*) 10 Mg Tablet 10 MG ORAL DAILY for 30 Days, #30 TAB Prov: Dwayne Oneill 02/09/18 Hydrochlorothiazide* (HYDROCHLOROTHIAZIDE*) 25 Mg Tablet 25 MG ORAL DAILY for 30 Days, #30 TAB Prov: Dwayne Oneill.A. 02/09/18 Atenolol* (TENORMIN*) 50 Mg Tablet 50 MG ORAL DAILY for 30 Days, #30 TAB Prov: Dwayne Oneill.Ron 02/09/18 Patient Instructions: Hypertension, [id number], Medicine Refill at the Emergency Department Additional Instructions: Followup with primary care provider for treatment and management of HTN. Contact insurance for primary care provider referral. ER cannot manage medications, needs followup with primary care provider. Take medications as directed. Patient questions asked and answered. ER precautions given, patient instructed to return to ER immediately for any new or worsening of symptoms. Dwayne Oneill Feb 09, 2018 16:40
[2018-02-09] MEDS ORDERED: HYDROCHLOROTHIA25 MG ORAL (16:59)
[2018-02-09] MEDS ORDERED: ATENOLOL50 MG ORAL (16:59)
[2018-02-09] MEDS ORDERED: PRINIVIL10 MG ORAL (16:59)
[2018-02-09 17:11] VITALS: BP 161/106
== END 2018-02-09 17:39 | disposition home or self-care (01) ==
LOC: EMR 16:58
DX: I10 Essential (primary) hypertension (principal); Z76.0 Encounter for issue of repeat prescription
CPT/HCPCS: 99283

== ENCOUNTER 2018-05-28 20:54 | Emergency (ER) | payer MEDICAID ==
[~2018-05-28] VITALS: Ht 160 cm; Wt 63.5 kg
[~2018-05-28 20:54] MED LIST changes: +PRINIVIL10 MG ORAL
[2018-05-28] MEDS ORDERED: LISINOPRIL20 MG ORAL (21:15)
[2018-05-28 21:25] VITALS: BP 160/109
[2018-05-28] MEDS ORDERED: ATENOLOL50 MG ORAL (21:31)
[2018-05-28] MEDS ORDERED: LISINOPRIL10 MG ORAL (21:31)
[2018-05-28] MEDS ORDERED: HYDROCHLOROTHIA25 MG ORAL (21:31)
--- NOTE | 2018-05-28 21:32 | Emergency Room Report ---
History of Present Illness General Chief Complaint: Medication Refill Source: Patient Present Illness HPI Is a 52-year-old female with history of hypertension. She presents with chief complaint of headache and needing refill on her blood pressure medication. She' s been out for 3-4 days. No nausea no vomiting. Similar symptom in the past. She has been here over a dozen time for the same thing. She refused to get a primary care doctor. She has no other complaint. Headache is mild and throbbing in nature. No focal deficit. No fever chills. No slurred speech. Allergies: Coded Allergies: NO KNOWN ALLERGIES (Unverified Allergy, Unknown, 08/31/15) Patient History Past Medical History: see triage record, old chart reviewed, HTN Past Surgical History: other Pertinent Family History: none Social History: Denies: smoking Last Menstrual Period: n/a Now: No - partial hysterctomy 2007 Immunizations: other Reviewed Nursing Documentation: PMH: Agreed; PSxH: Agreed Nursing Documentation-PM Past Medical History: No History, Except For Hx Hypertension: Yes Review of Systems Eye: Denies: eye pain, blurred vision ENT: Denies: ear pain, nose congestion, throat swelling Respiratory: Denies: cough, shortness of breath Cardiovascular: Denies: chest pain, palpitations Gastrointestinal: Denies: abdominal pain, diarrhea, nausea, vomiting Musculoskeletal: Denies: back pain, joint pain Skin: Denies: rash Neurological: Reports: headache; Denies: numbness Endocrine: Denies: increased thirst, increased urine Hematologic/Lymphatic: Denies: easy bruising All Other Systems: negative except mentioned in HPI Physical Exam Vital Signs Date Time Temp Pulse Resp B/P (MAP) Pulse Ox O2 Delivery O2 Flow Rate FiO2 05/28/18 21:10 98.2 91 16 160/109 95 Room Air 98.2 vitals with high blood pressure Sp02 EP Interpretation: reviewed, normal General Appearance: well appearing, no apparent distress, alert Head: normocephalic, atraumatic Eyes: bilateral eye PERRL, bilateral eye EOMI ENT: hearing grossly normal, normal pharynx Neck: full range of motion, supple, no meningismus Respiratory: chest non-tender, lungs clear, normal breath sounds Cardiovascular #1: regular rate, rhythm, no murmur Gastrointestinal: normal bowel sounds, non tender, no mass, no organomegaly, no bruit, non-distended Musculoskeletal: back normal, gait/station normal, normal range of motion Psychiatric: mood/affect normal Skin: warm/dry Medical Decision Making Diagnostic Impression: Primary Impression: Encounter for medication refill Additional Impressions: Hypertension Qualified Codes: I10 - Essential (primary) hypertension Headache Qualified Codes: G44.209 - Tension-type headache, unspecified, not intractable ER Course Patient with mild headache and high blood pressure. No evidence of any focal deficit. I advised patient to get primary care doctor for follow-up and refill on her medication. Also will need other primary care services. ER is not a place for it. I will give a list of services for her follow-up. Last Vital Signs Date Time Temp Pulse Resp B/P (MAP) Pulse Ox O2 Delivery O2 Flow Rate FiO2 05/28/18 21:25 98.2 91 16 160/109 95 Room Air 98.2 Status: unchanged Disposition: HOME, SELF-CARE Scripts Hydrochlorothiazide* (HYDROCHLOROTHIAZIDE*) 25 Mg Tablet 25 MG ORAL DAILY, #90 TAB Prov: AGUSTIN SMITH M.D. 05/28/18 Lisinopril* (LISINOPRIL*) 10 Mg Tablet 10 MG ORAL DAILY, #90 TAB Prov: AGUSTIN SMITH M.D. 05/28/18 Atenolol* (TENORMIN*) 50 Mg Tablet 50 MG ORAL DAILY, #90 TAB Prov: AGUSTIN SMITH M.D. 05/28/18 Patient Instructions: Medicine Refill at the Emergency Department Additional Instructions: Follow-up with her primary care doctor or clinic within a week. The ER is not your primary care doctor. You been here over a dozen time for refill your medication. You'll need a primary care Dr. so blood work came be done and routine testing and primary care services can be given. Return if symptom worsen. AGUSTIN SMITH M.D. May 28, 2018 21:32
[2018-05-28 21:38] VITALS: BP 160/109
== END 2018-05-28 22:40 | disposition home or self-care (01) ==
LOC: EMR 21:30
DX: G44.209 Tension-type headache, unspecified, not intractable (principal); I10 Essential (primary) hypertension; Z76.0 Encounter for issue of repeat prescription; Z90.711 Acquired absence of uterus with remaining cervical stump
CPT/HCPCS: 99284